=== PATIENT | male | born 1985 | race African-American/Black ===

== ENCOUNTER 2022-01-01 07:13 | Emergency (ER) | payer OTHER, SELFPAY ==
[2022-01-01 07:16] VITALS: BP 115/75; PULSE 70; RESP 24; TEMP 36.1; O2SAT 96; BMI 30.4
--- NOTE | 2022-01-01 07:25 | ED.FEMALEGU ---
HPI - Female Genitourinary General Time Seen by Provider: 07:26 Date Seen: 01/01/22 Chief complaint: Flank Pain Stated complaint: Severe side pain Time Seen by Provider: 01/01/22 07:24 Source: patient, RN notes reviewed and old records reviewed Mode of arrival: ambulatory Limitations: no limitations Related Data Home Medications Medication Instructions Recorded Confirmed No Known Home Medications 01/01/22 01/01/22 Allergies Allergy/AdvReac Type Severity Reaction Status Date / Time No Known Drug Allergies Allergy Verified 01/01/22 07:21 PFSH PFS Social History Smoking Status: Never smoker Do you use any of these nicotine containing products: None How often do you have a drink containing alcohol: never How often do you have six or more drinks on one occasion: Never AUDIT-C Alcohol total score: 0 Non-prescribed substance use: denies use Exam Const: Vital Signs, click to edit/add: Vital Signs - 24 hr 01/01/22 07:16 Temperature 96.9 F L Pulse Rate [Right Pulse Oximeter] 70 Respiratory Rate 24 Blood Pressure [Ri ght Upper Arm] 115/75 Pulse Oximetry 96 Oxygen Delivery Me thod Room Air Course Vital Signs Vital signs: Initial Vital Signs Temperature 96.9 F L 01/01/22 07:16 Temperature Source Temporal Artery Scan 01/01/22 07:16 Pulse Rate 70 01/01/22 07:16 Respiratory Rate 24 01/01/22 07:16 Blood Pressure 115/75 01/01/22 07:16 Blood Pressure Mean 88 01/01/22 07:16 Blood Pressure Position Sitting 01/01/22 07:16 Pulse Oximetry 96 01/01/22 07:16 Oxygen Delivery Method 01/01/22 07:16 Vital Signs Temperature 96.9 F L 01/01/22 07:16 Pulse Rate 70 01/01/22 07:16 Respiratory Rate 24 01/01/22 07:16 Blood Pressure 115/75 01/01/22 07:16 Pulse Oximetry 96 01/01/22 07:16 Oxygen Delivery Method 01/01/22 07:16 Temperature 96.9 F L 01/01/22 07:16 Pulse Rate 70 01/01/22 07:16 Respiratory Rate 24 01/01/22 07:16 Blood Pressure 115/75 01/01/22 07:16 Pulse Oximetry 96 01/01/22 07:16 Oxygen Delivery Method 01/01/22 07:16 Discharge Plan Discharge Prescriptions: No Action No Known Home Medications
--- NOTE | 2022-01-01 07:30 | CRLHL7_ITS ---
For Patients: As a result of the Century Cures Act, medical imaging exams and procedure reports are released immediately into your electronic medical record. You may view this report before your referring provider. If you have questions, please contact your health care provider. INDICATION: Left-sided abdominal pain COMPARISON: No TECHNIQUE: CT examination of the abdomen and pelvis was performed without intravenous contrast. Thin section axial images were obtained from the lung bases through the pubic symphysis. Oral contrast was not administered. Please note that all CT scans at this facility use dose modulation, iterative reconstruction, and/or weight-based dosing when appropriate to reduce radiation dose to as low as reasonably achievable. FINDINGS: LUNG BASES: The lung bases as visualized appear normal.The heart size is normal at the lung bases. LIVER/BILIARY SYSTEM:The liver is normal in size and configuration given the lack of intravenous contrast. There is no visible focal mass and there is no intra- or extra hepatic biliary ductal dilatation.Steatosis. The gallbladder appears normal ADRENALS: Normal non-contrast appearance KIDNEYS, URETERS and BLADDER:Intrarenal calculi bilaterally. These are in the 1-2 millimeter range. Papillary hyperdensities bilaterally also identified likely representing medullary sponge kidney. A 6 millimeter calculus is noted at the left ureteropelvic junction with mild upstream dilation. SPLEEN:Normal non-contrast appearance. PANCREAS: Normal non-contrast appearance. RETROPERITONEUM and MESENTERY: There is no mass, adenopathy or aortic aneurysm. GASTROINTESTINAL SYSTEM: There is no evidence of diverticulitis, colitis, mechanical obstruction, or appendicitis. The small bowel as visualized appears normal. PELVIS: No mass, adenopathy or free fluid. OSSEOUS STRUCTURES and ABDOMINAL WALL: There is an age-appropriate appearance of the osseous structures.No significant abdominal wall defect. OTHER: No free fluid or free air. IMPRESSION: 1. Left-sided obstructive uropathy due to a 6 millimeter calcified calculus at the left ureteropelvic junction. Small intrarenal calculi bilaterally. Findings likely represent a medullary sponge kidney. 2. The examination is otherwise unremarkable. Please note that all CT scans at this facility use dose modulation, iterative reconstruction, and/or weight-based dosing when appropriate to reduce radiation dose to as low as reasonably achievable. Dictated by Shivam Boyd MD @ 01/01/2022 8:38:23 AM (Electronically Signed)
--- NOTE | 2022-01-01 07:32 | ED_ITS ---
HPI - Abdominal Pain General Time Seen by Provider: 07:15 Date Seen: 01/01/22 Chief Complaint: Flank Pain Stated Complaint: Severe side pain Time Seen by Provider: 01/01/22 07:24 Source: patient and RN notes reviewed Mode of arrival: ambulatory Limitations: no limitations History of Present Illness HPI narrative: Patient is a very pleasant 36-year-old male healthy per his report who comes to the emergency room with sudden onset of left-sided abdominal pain. Patient notes a waking with this discomfort. The pain he rates a 20 out of the 10. He notes that he had vomiting prior to coming here. He denies any previous pain of this kind. He does have a sister with kidney stones. He has not had any recent fever or chills. He did have a bout of diarrhea greater than 24 hours ago. He denies fever or chills, dysuria, recent cold cough or congestion. Related Data Home Medications Medication Instructions Recorded Confirmed No Known Home Medications 01/01/22 01/01/22 Allergies Allergy/AdvReac Type Severity Reaction Status Date / Time No Known Drug Allergies Allergy Verified 01/01/22 07:21 Review of Systems Status of ROS Reports: 6 or more systems reviewed and unremarkable except as noted in History and below Const Denies: fever or chills Eyes Denies: change in vision ENMT Denies: throat pain Cardio Denies: chest pain or shortness of breath with exertion Resp Denies: shortness of breath GI Reports: abdominal pain, nausea and vomiting Denies: painful urination, urinary frequency or blood in urine Musculo Denies: back pain PFSH PFSH Social History Smoking Status: Never smoker Do you use any of these nicotine containing products: None How often do you have a drink containing alcohol: never How often do you have six or more drinks on one occasion: Never AUDIT-C Alcohol total score: 0 Non-prescribed substance use: denies use Exam Narrative: Exam Narrative: Patient is very pleasant well-spoken gentleman. Alert and oriented. In obvious discomfort. EOM is full. Oral cavity is moist mucous membranes. Neck is supple. Heart with regular rate and rhythm. Lungs are clear. Abdomen is soft there is no significant tenderness. No rebound tenderness. Lower extremities without edema Const: Vital Signs, click to edit/add: Vital Signs - 24 hr 01/01/22 07:16 Temperature 96.9 F L Pulse Rate [Right Pulse Oximeter] 70 Respiratory Rate 24 Blood Pressure [Ri ght Upper Arm] 115/75 Pulse Oximetry 96 Oxygen Delivery Me thod Room Air Course Course Hospital Course: Will initiate IV and draw blood including a CBC, basic panel. Pain will be treated with morphine 4 mg, Zofran 4 mg and Toradol 15 mg. Also give 500 mL of normal saline. Reevaluation(s) Reevaluation #1: Patient much improved after pain medications. Vital Signs Vital signs: Initial Vital Signs Temperature 96.9 F L 01/01/22 07:16 Temperature Source Temporal Artery Scan 01/01/22 07:16 Pulse Rate 70 01/01/22 07:16 Respiratory Rate 24 01/01/22 07:16 Blood Pressure 115/75 01/01/22 07:16 Blood Pressure Mean 88 01/01/22 07:16 Blood Pressure Position Sitting 01/01/22 07:16 Pulse Oximetry 96 01/01/22 07:16 Oxygen Delivery Method 01/01/22 07:16 Vital Signs Temperature 96.9 F L 01/01/22 07:16 Pulse Rate 70 01/01/22 07:16 Respiratory Rate 24 01/01/22 07:16 Blood Pressure 115/75 01/01/22 07:16 Pulse Oximetry 96 01/01/22 07:16 Oxygen Delivery Method 01/01/22 07:16 Temperature 96.9 F L 01/01/22 07:16 Pulse Rate 70 01/01/22 07:16 Respiratory Rate 24 01/01/22 07:16 Blood Pressure 115/75 01/01/22 07:16 Pulse Oximetry 96 01/01/22 07:16 Oxygen Delivery Method 01/01/22 07:16 MDM - Abdominal Pain MDM Narrative Medical decision making narrative: 1. Ureteral colic secondary to kidney stone-patient noted to have a 6 mm stone. Would advise him to strain his urine, pain medications as per 2. The importance of seeking medical attention should he develop a fever or worsening symptoms is stressed with him. 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 He is advised to follow-up when he returns to [place]. Urinalysis currently pending. 2. Abdominal pain-improved with morphine, Toradol, Zofran. Will give additional dose of morphine 4 mg his pain is now returning to 07/22. Home medications will include Toradol 15 mg p.o. Q 6-8 hours p.r.n.., Zofran 4 mg q.8 hours p.r.n., and Arlington 5/325 1-2 tabs p.o. q.4-6 hours p.r.n. 20. All via [employer]. 3. Disposition-pending reassuring urinalysis with no evidence of UTI will discharge patient. Again, patient advised to return for any worsening symptoms especially fever. Lab Data Attestation: I reviewed the patient's lab results. Labs: Lab Results 01/01/22 01/01/22 Range/Units 07:40 07:40 WBC 8.34 (4.50-11.00) K/uL RBC 4.80 (4.30-5.90) m/uL Hgb 14.6 (13.5-17.5) gm/dL Hct 43.0 (37.0-53.0) % MCV 90 (80-100) fL MCH 30 (26-34) pg MCHC 34 (32-36) gm/dL RDW Coeff of Xavier 12.3 (11.5-15.5) % Plt Count 224 (140-440) K/uL Neut % (Auto) 45.8 (42.0-72.0) % Lymph % (Auto) 43.6 (20-44) % Brantley % (Auto) 8.0 (0.0-11.0) % Eos % (Auto) 1.8 (0.0-7.0) % Baso % (Auto) 0.6 (0.0-3.0) % Neut # (Auto) 3.81 (1.7-7.0) K/uL Lymph # (Auto) 3.64 H (0.90-2.90) K/uL Brantley # (Auto) 0.70 (0.00-0.90) K/UL Eos # (Auto) 0.15 (0.00-0.50) K/uL Baso # (Auto) 0.05 (0.00-0.30) K/uL Abs Immat Gran (auto) 0.02 (0.00-0.30) K/uL Sodium 138 (135-149) mmol/L Potassium 3.9 (3.6-5.1) mmol/L Chloride 102 (96-114) mmol/L Carbon Dioxide 25 (20-32) mmol/L BUN 15 (5-24) mg/dL Creatinine 1.0 (0.5-1.5) mg/dL Estimated Creat Clear 108.77 Estimated GFR 100 ml/min Glucose 162 H (60-115) mg/dL Calcium 9.9 (8.4-10.6) mg/dL Imaging Data CT scan - abdomen: Attestation: I have reviewed the pertinent imaging results. My impression: Left ureteral stone. Radiologist's impression: . Left-sided obstructive uropathy due to a 6 millimeter calcified calculus at the left ureteropelvic junction. Small intrarenal calculi bilaterally. Findings likely represent a medullary sponge kidney. 2. The examination is otherwise unremarkable. Discharge Plan Discharge Clinical Impression: Colic, ureteral, Kidney stone Patient Disposition: Home, Self-Care Condition: Improved Additional Instructions: For pain: Toradol 1 tablet every 6-8 hours as needed. Arlington, also known as hydrocodone and Tylenol or Vicodin may be used for pain not relieved by Toradol. If you are using Arlington you should not be driving as this will be sedating. It may also cause constipation. The medication called Zofran may be used for nausea as needed. Push fluids and strain your urine for a stone. Follow-up with your clinic when you return to [place]. Seek medical attention if you would developed a fever, persistent vomiting or worsening symptoms. Prescriptions: No Action No Known Home Medications Stand Alone Forms: [employer] Info Instructions
[2022-01-01 07:50] LABS: Basophils Absolute Auto 0.05 K/uL (0.00-0.30); Basophils Percent Auto 0.6 % (0.0-3.0); Eosinophils Absolute Auto 0.15 K/uL (0.00-0.50); Eosinophils Percent Auto 1.8 % (0.0-7.0); Hemoglobin* 14.6 gm/dL (13.5-17.5); Immature Granulocytes Abs Auto 0.02 K/uL (0.00-0.30); Lymphocytes Absolute Auto 3.64 K/uL (0.90-2.90); Lymphocytes Percent Auto 43.6 % (20-44); Mean Corpuscular HGB Conc 34 gm/dL (32-36); Mean Corpuscular Hemoglobin 30 pg (26-34); Mean Corpuscular Volume 90 fL (80-100); Neutrophils Absolute Auto 3.81 K/uL (1.7-7.0); Neutrophils Percent Auto 45.8 % (42.0-72.0); Platelet Count* 224 K/uL (140-440); RDW Coefficient of Variation % 12.3 % (11.5-15.5); White Blood Count* 8.34 K/uL (4.50-11.00)
[2022-01-01] MEDS: 0.9 % SODIUM CHLORIDE 500 ML 500 ML IV (07:54)
[2022-01-01] MEDS: ONDANSETRON 2 MG/ML inj 4 MG IVP (07:55)
[2022-01-01] MEDS: MORPHINE 4 MG/ML INJ IVP ×2 (07:55→09:12)
[2022-01-01] MEDS: KETOROLAC 15 MG/ML inj IVP (07:55)
[2022-01-01 07:57] LABS: Slide Review Reflex No
[2022-01-01 08:05] LABS: Chloride* 102 mmol/L (96-114); Potassium* 3.9 mmol/L (3.6-5.1); Sodium* 138 mmol/L (135-149)
[2022-01-01 08:07] LABS: Est. Creatinine Clearance* 108.77; Estimated Glomerular Filt Rate 100 ml/min
[2022-01-01 08:08] LABS: Blood Urea Nitrogen* 15 mg/dL (5-24); Calcium* 9.9 mg/dL (8.4-10.6); Carbon Dioxide* 25 mmol/L (20-32); Glucose* 162 mg/dL (60-115)
[2022-01-01] MEDS: TAMSULOSIN HCL 0.4 MG CAPSULE PO (09:12)
--- NOTE | 2022-01-01 10:11 | ED.NURSE ---
patient is up to bathroom to void and collecting a urine sample.
--- NOTE | 2022-01-01 11:11 | ED.NURSE ---
still unable to ge the UA so given more water to drink. patient is aware need to get the urine.
[2022-01-01 13:07] LABS: Appearance Urine Clear (Clear); Bilirubin Urine Negative (Negative); Blood Urine 3+ (Negative); Color Urine Yellow (Yellow); Glucose Urine Negative (Negative); Ketones Urine Negative (Negative); Leukocyte Esterase Urine Negative (Negative); Nitrite Urine Negative (Negative); Protein Urine Negative (Negative); Specific Gravity Urine 1.015 (1.000-1.030)
[2022-01-01 13:38] LABS: Bacteria Urine Few; Squamous Epithelial Cell Urine Few (None-Few); WBC Urine 25-50 (0-5)
[2022-01-01 13:39] LABS: Mucus Urine Few
[2022-01-01 14:00] VITALS: BP 109/66; PULSE 66; RESP 16; O2SAT 96
--- NOTE | 2022-01-01 14:10 | ED.NURSE ---
Strainers and specimen cup sent with patient as well as copy of images.
== END 2022-01-01 14:12 | disposition home or self-care (01) ==
PROVIDERS: Emergency Provider Family Medicine
DX: N20.2 Calculus of kidney with calculus of ureter (principal)
CPT/HCPCS: 36415; 74176; 80048; 81001; 85025; 87086; 96374; 96375; 96376; 99284; A9270; J1885; J2270; J2405; J7120